=== PATIENT | male | born 1965 | race Caucasian/White ===

== ENCOUNTER 2018-11-14 16:21 | Emergency (ER) | payer OTHER ==
--- NOTE | 2018-11-14 17:40 | EDM.PDOC ---
ED HPI GENERAL MEDICAL PROBLEM - General Chief Complaint: Upper Extremity Injury/Pain Stated Complaint: right shoulder injury Time Seen by Provider: 11/14/18 16:32 Source of Information: Reports: Patient History Limitations: Reports: No Limitations - History of Present Illness INITIAL COMMENTS - FREE TEXT/NARRATIVE: Patient was in process of lifting heavy object when he felt pop and pain in right shoulder. He continued to try to lift and then felt pop and pain in area of right biceps. Unable to flex right arm. Has continued discomfort in bicep and shoulder. No other complaints. No numbness/tingling. Right Shoulder Pain Score (Numeric/FACES): 9 - Related Data Allergies Allergy/AdvReac Type Severity Reaction Status Date / Time No Known Allergies Allergy Verified 11/14/18 16:22 Home Meds: Home Meds Aspirin [Adult Aspirin] 81 mg PO BEDTIME 11/14/18 [History] Past Medical History - Past Surgical History Other Musculoskeletal Surgeries/Procedures:: R ankle plates and screws Social & Family History - Tobacco Use Smoking Status *Q: Current Every Day Smoker Years of Tobacco use: 20 Packs/Tins Daily: 1 - Caffeine Use Caffeine Use: Reports: Coffee, Soda Review of Systems - Review of Systems Review Of Systems: ROS reveals no pertinent complaints other than HPI. ED EXAM, GENERAL - Physical Exam Exam: See Below Exam Limited By: No Limitations General Appearance: Alert, WD/WN, Mild Distress Eye Exam: Bilateral Eye: EOMI, PERRL Ears: Normal External Exam Nose: No: Nasal Drainage Throat/Mouth: Normal Lips, Normal Voice, No Airway Compromise Head: Atraumatic, Normocephalic Neck: Supple, Non-Tender Respiratory/Chest: No Respiratory Distress, Lungs Clear, Normal Breath Sounds, Chest Non-Tender Cardiovascular: Regular Rate, Rhythm, No Murmur GI/Abdominal: Soft (Male) Exam: Deferred Rectal (Males) Exam: Deferred Back Exam: Normal Inspection Extremities: Other (Pain with palpation along mid and upper right bicep. Also pain with palpation of anterior shoulder/rotator cuff. Non tender around elbow/ forearm/hand. Nontender along collar bone and scapula. Unable to adduct arm at elbow. Able to rotate wrist and move fingers well. ) Neurological: Alert, Oriented, Normal Cognition, Normal Gait Psychiatric: Normal Affect, Normal Mood Skin Exam: Warm, Dry, Intact, Normal Color Course - Vital Signs Last Recorded V/S: Last Vital Signs Temp 36.9 C 11/14/18 16:28 Pulse 78 11/14/18 16:28 Resp 18 11/14/18 16:28 BP 148/87 H 11/14/18 16:28 Pulse Ox 94 L 11/14/18 16:28 - Orders/Labs/Meds Orders: Active Orders 24 hr Category Date Time Status Shoulder Comp Rt [CR] Stat Exams 11/14/18 16:59 Ordered Meds: Medications Discontinued Medications Generic Name Dose Route Start Last Admin Trade Name Freq PRN Reason Stop Dose Admin Ketorolac Tromethamine 60 mg 11/14/18 16:59 11/14/18 17:57 Toradol IM 11/14/18 17:00 Not Given ONETIME ONE Oxycodone/Acetaminophen 1 tab 11/14/18 16:59 11/14/18 17:57 Percocet 325-5 Mg PO 11/14/18 17:00 Not Given ONETIME ONE - Re-Assessments/Exams Free Text/Narrative Re-Assessment/Exam: 11/14/18 20:16 Xray of shoulder unremarkable. Suspect biceps tear. May also have rotator cuff injury. Patient placed in shoulder immobilizer for comfort and protection. Call placed to sales correspondence clerk Ortho MD. Spoke with . He recommended patient go to [facility] walk-in this week, or call and make appointment with the clinic and be evaluated. Will need MRI evaluation and further planning as needed. Patient given Tramadol to take for PRN pain from ER stock. Precautions reviewed. WSI sheets filled out. Is in agreement with the above plan. Departure - Departure Time of Disposition: 17:40 Disposition: Home, Self-Care 01 Condition: Good Clinical Impression: Tear of right biceps muscle Qualifiers: Encounter type: initial encounter Qualified Code(s): S46.211A - Strain of muscle, fascia and tendon of other parts of biceps, right arm, initial encounter Right shoulder injury Qualifiers: Encounter type: initial encounter Qualified Code(s): S49.91XA - Unspecified injury of right shoulder and upper arm, initial encounter - Discharge Information *PRESCRIPTION DRUG MONITORING PROGRAM REVIEWED*: Not Applicable *COPY OF PRESCRIPTION DRUG MONITORING REPORT IN PATIENT ALIYA: Not Applicable Instructions: How to Use a Shoulder Immobilizer, Biceps Tendon Disruption ( Proximal) Referrals: PCP,None [Primary Care Provider] - Forms: ED Department Discharge Additional Instructions: Follow up at Ortho walk in clinic in [place] tomorrow for re-evaluation. You will likely need to have an MRI study of the shoulder to more closely look at what type of injury you sustained. OK to take Tylenol for pain. You received a prescription for Tramadol. You may take one tablet every 6 hours to help with the pain. - My Orders Last 24 Hours: My Active Orders 11/14/18 16:59 Shoulder Comp Rt [CR] Stat - Assessment/Plan Last 24 Hours: My Active Orders 11/14/18 16:59 Shoulder Comp Rt [CR] Stat
[2018-11-14] MEDS: Ketorolac 60 MG/2 ML SDV IM ONE (17:57)
[2018-11-14] MEDS: Acetaminophen/oxyCODONE 325-5 MG Tab PO ONE (17:57)
== END 2018-11-14 17:55 | disposition home or self-care (01) ==
LOC: LL.ED 16:21
DX: S46.211A Strain of muscle, fascia and tendon of other parts of biceps, right arm, initial encounter (principal); S49.91XA Unspecified injury of right shoulder and upper arm, initial encounter; F17.210 Nicotine dependence, cigarettes, uncomplicated; X50.0XXA Overexertion from strenuous movement or load, initial encounter
CPT/HCPCS: 73030-RT; 99283